=== PATIENT | male | born 1990 | race African-American/Black ===

== ENCOUNTER 2024-01-28 16:10 | Inpatient (IN) | payer BC ==
[2024-01-28 17:11] VITALS: BMI 20.9
[2024-01-28] MEDS ORDERED: BISMUTH SUBSALICYLATE 524 MG/30 ML PO PRN (19:39)
[2024-01-28] MEDS ORDERED: IBUPROFEN 600 MG TABLET (FP) PO PRN (19:39)
[2024-01-28] MEDS ORDERED: POLYETHYLENE GLYCOL (HEALTHYLAX) 3350 17 GM PACKET PO PRN (19:39)
[2024-01-28] MEDS ORDERED: NALOXONE (NARCAN) HCL 4 MG/0.1 ML SPRAY NS PRN (19:39)
[2024-01-28] MEDS ORDERED: DICYCLOMINE HCL 10 MG CAPSULE PO PRN (19:39)
[2024-01-28] MEDS ORDERED: MAGNESIUM HYDROX 2400MG/30ML ORAL SUSPENSION 30 ML CUP PO PRN (19:39)
[2024-01-28] MEDS ORDERED: BENZOCAINE/MENTHOL (CHLORASEPTIC ) LOZENGE MM PRN (19:39)
[2024-01-28] MEDS ORDERED: guaiFENesin 600 MG TABLET.ER (FP) PO PRN (19:39)
[2024-01-28] MEDS ORDERED: NALOXONE HCL 0.4 MG/ML VIAL IM PRN (19:39)
[2024-01-28] MEDS ORDERED: ACETAMINOPHEN 325 MG TABLET (FP) PO PRN (19:39)
[2024-01-28] MEDS ORDERED: BENZONATATE 200 MG CAPSULE PO PRN (19:39)
[2024-01-28] MEDS ORDERED: IBUPROFEN 400 MG TABLET (FP) PO PRN (19:39)
[2024-01-28] MEDS ORDERED: LOPERAMIDE HCL 2 MG CAPSULE PO PRN (19:39)
[2024-01-28] MEDS ORDERED: MAG HYDROX/AL HYDROX/SIMETH 30 ML UNIT-DOSE CUP PO PRN (19:39)
[2024-01-28] MEDS ORDERED: ONDANSETRON *ODT* 4 MG TABLET SL PRN (19:39)
[2024-01-28] MEDS: MELATONIN 5 MG TABLETS PO SCH (22:32)
[2024-01-28] MEDS: METHOCARBAMOL 500 MG TABLET PO PRN (22:32)
[2024-01-28] MEDS: THIAMINE 100 MG TABLET PO SCH (22:32)
[2024-01-28] MEDS: BUDESONIDE/FORMETEROL FUMARATE 160/4.5 mcg INHALER IH SCH (22:38)
[2024-01-28] MEDS: ALBUTEROL SO4 HFA INHALER IH PRN (22:38)
[2024-01-29] MEDS: PRENATAL VITAMINS W/ FOLIC ACID TABLET (FP) PO SCH (10:18)
[2024-01-29 14:20] LABS: HEMATOCRIT 37.6 % (35.4-49); HEMOGLOBIN 12.7 GM/dL (11.7-16.9); MCH 33.7 pg (25.7-33.7); MCHC 33.8 g/dl (32.0-35.9); MEAN CELL VOLUME 99.6 fl (80-96); MEAN PLT VOLUME 7.2 fl (7.5-11.1); PLATELET COUNT 273 10^3/uL (134-434); RBC 3.78 M/mm3 (4.00-5.60); RDW 15.2 % (11.9-15.9)
[2024-01-29 14:32] LABS: CHLORIDE 98 mmol/L (98-107); POTASSIUM 3.9 mmol/L (3.5-5.1); SODIUM 135 mmol/L (136-145)
[2024-01-29 14:44] LABS: ALBUMIN 3.9 g/dl (3.4-5.0); ANION GAP 6 mmol/L (4-13); CO2 31 mmol/L (21-32); GLUCOSE,RANDOM 82 mg/dL (74-106); SGPT/ALT 28 U/L (13-61)
[2024-01-29 14:46] LABS: ALK PHOS 85 U/L (45-117)
[2024-01-29 14:47] LABS: CALCIUM 9.5 mg/dL (8.5-10.1); CREATININE 0.9 mg/dL (0.55-1.3)
[2024-01-29 14:48] LABS: BLOOD UREA NITROGEN 6.9 mg/dL (7-18); SGOT/AST 48 U/L (15-37)
[2024-01-29 14:54] LABS: BILIRUBIN,TOTAL 0.4 mg/dL (0.2-1)
[2024-01-30] MEDS: hydrOXYzine PAMOATE 25 MG CAPSULE (FP) PO PRN (22:16)
[2024-01-31] MEDS: NALTREXONE HCL 50 MG TABLET PO SCH (16:22)
[2024-02-01 16:37] VITALS: BP 133/94; PULSE 74; RESP 18; TEMP 97.7
== END 2024-02-01 17:09 | disposition other institution (70) | DRG 775 ==
LOC: YASAS 16:10 → Y6N 20:11
PROVIDERS: ADMIT Allergy & Immunology; ATTEND Allergy & Immunology
PROC: HZ2ZZZZ Detoxification Services for Substance Abuse Treatment (ICD-10-PCS; principal; 2024-01-28)
DX: F10.230 Alcohol dependence with withdrawal, uncomplicated (principal); F12.20 Cannabis dependence, uncomplicated; F17.213 Nicotine dependence, cigarettes, with withdrawal; J45.20 Mild intermittent asthma, uncomplicated
CPT/HCPCS: 36415; 80053; 80305; 80307; 85027; 86780; 87811; 93005; 93010

== ENCOUNTER 2024-02-01 17:15 | Inpatient (IN) | payer BC ==
[~2024-02-01 17:15] MED LIST: BENZOCAINE/MENTHOL (CHLORASEPTIC ) LOZENGE MM PRN; BENZONATATE 200 MG CAPSULE PO PRN; LOPERAMIDE HCL 2 MG CAPSULE PO PRN; MAG HYDROX/AL HYDROX/SIMETH 30 ML UNIT-DOSE CUP PO PRN; MAGNESIUM HYDROX 2400MG/30ML ORAL SUSPENSION 30 ML CUP PO PRN; NICOTINE POLACRILEX 2 MG GUM BUC PRN; NICOTINE POLACRILEX 2 MG LOZENGE BC PRN; POLYETHYLENE GLYCOL (HEALTHYLAX) 3350 17 GM PACKET PO PRN; guaiFENesin 600 MG TABLET.ER (FP) PO PRN
[2024-02-01] MEDS: hydrOXYzine PAMOATE 25 MG CAPSULE (FP) PO PRN (21:34)
[2024-02-01] MEDS: THIAMINE 100 MG TABLET PO SCH (21:34)
[2024-02-01] MEDS: BUDESONIDE/FORMETEROL FUMARATE 160/4.5 mcg INHALER IH SCH (21:34)
[2024-02-01] MEDS: ALBUTEROL SO4 HFA INHALER IH PRN (21:35)
[2024-02-01] MEDS: MELATONIN 5 MG TABLETS PO SCH (21:36)
[2024-02-02] MEDS: NALTREXONE HCL 50 MG TABLET PO SCH (10:03)
[2024-02-02] MEDS: PRENATAL VITAMINS W/ FOLIC ACID TABLET (FP) PO SCH (10:03)
[2024-02-02] MEDS: METHOCARBAMOL 500 MG TABLET PO SCH (10:48)
[2024-02-02] MEDS: BUDESONIDE/FORMETEROL FUMARATE 160/4.5 mcg INHALER IH SCH (10:48)
[2024-02-09] MEDS: IBUPROFEN 400 MG TABLET (FP) PO PRN (09:45)
[2024-02-09] MEDS: METHOCARBAMOL 500 MG TABLET PO PRN (21:31)
[2024-02-15] MEDS: ACETAMINOPHEN 325 MG TABLET (FP) PO PRN (01:00)
[2024-02-16] MEDS: IBUPROFEN 600 MG TABLET (FP) PO PRN (22:07)
[2024-02-17] MEDS: hydrOXYzine PAMOATE 50 MG CAPSULE (FP) PO PRN (21:13)
[2024-02-27 06:41] VITALS: RESP 16
[2024-02-29 06:47] VITALS: BP 118/85; PULSE 82; TEMP 97.3
== END 2024-02-29 09:58 | disposition home or self-care (01) | DRG 772 ==
LOC: YASAS 17:15 → Y3W 17:16 → Y6N 02-10 23:46 → Y3W 02-10 23:48
PROVIDERS: ADMIT Allergy & Immunology; ATTEND Psychiatry & Neurology Pain Medicine
PROC: HZ42ZZZ Group Counseling for Substance Abuse Treatment, Cognitive-Behavioral (ICD-10-PCS; principal; 2024-02-01)
DX: F10.20 Alcohol dependence, uncomplicated (principal); F12.20 Cannabis dependence, uncomplicated; F17.210 Nicotine dependence, cigarettes, uncomplicated; F41.9 Anxiety disorder, unspecified; I10 Essential (primary) hypertension; J45.909 Unspecified asthma, uncomplicated; Z88.0 Allergy status to penicillin
CPT/HCPCS: 36415; 86803